=== PATIENT | female | born 1960 | race Two or more races ===

== ENCOUNTER → 2019-01-25 | Outpatient (CLI) | payer MEDICARE ==
[~2019-01-25] VITALS: Ht 167.6 cm; Wt 86.2 kg
== END | disposition home or self-care (01) ==
LOC: Rad HDHVI 08:41
PROVIDERS: ATTEND Internal Medicine Cardiovascular Disease
DX: R42 Dizziness and giddiness (principal); R55 Syncope and collapse; R06.02 Shortness of breath; I10 Essential (primary) hypertension; E78.00 Pure hypercholesterolemia, unspecified; E11.9 Type 2 diabetes mellitus without complications; Z79.899 Other long term (current) drug therapy; Z79.84 Long term (current) use of oral hypoglycemic drugs
CPT/HCPCS: 78452; 93017; 93306; 96374; A9500

== ENCOUNTER 2020-03-05 14:53 | Inpatient (IN) | payer MEDICARE, MEDICAID ==
[~2020-03-05] VITALS: Ht 162.6 cm; Wt 87.3 kg
[2020-03-05] MEDS ORDERED: methylPREDNISolone SOD SUCC 125 MG/2 ML VL IV ONE (15:15)
[2020-03-05] MEDS ORDERED: AZITHROMYCIN 500MG/ 250ML 250 ML IV ONE (15:15)
[2020-03-05] MEDS ORDERED: REMDESIVIR PER PHARMACY 0 ML IV SCH (15:30)
[2020-03-05 15:52] LABS: Basophils # (auto) 0 10 ^3/uL (0-0.2); Basophils % (auto) 0.2 % (0.0-2.0); Eosinophils # (auto) 0.1 10 ^3/uL (0-0.8); Eosinophils % (auto) 1.2 % (0.0-7.0); Hematocrit 34.4 % (36.0-46.0); Hemoglobin 11.7 g/dL (12.2-16.2); Lymphocytes # (auto) 1.3 10 ^3/uL (0.4-5.4); Lymphocytes % (auto) 16.7 % (10.0-50.0); Mean Corpuscular Hemoglobin 27.5 pg (28.0-32.0); Mean Corpuscular Hgb Conc. 34.1 g/dL (32.0-36.0); Mean Corpuscular Volume 80.5 fL (80.0-100.0); Monocytes # (auto) 0.8 10 ^3/uL (0-1.3); Monocytes % (auto) 9.9 % (0.0-12.0); Neutrophils # (auto) 5.8 10 ^3/uL (1.6-8.6); Nucleated Red Blood Cells % 0.1 %; Platelet Count (auto) 390 10^3/uL (140-450); Red Blood Cells 4.28 10^6/uL (4.0-5.20); Red Cell Distribution Width 16.1 % (11.8-14.3)
[2020-03-05 16:11] LABS: Chloride 101 mmol/L (98-107); Potassium 3.6 mmol/L (3.5-5.1); Sodium 133 mmol/L (136-145)
[2020-03-05 16:23] LABS: Alanine Aminotransferase 31 U/L (13-56); Albumin 3.3 g/dL (3.4-5.0); Alkaline Phosphatase 104 U/L (45-117); Anion Gap 5 (5-15); Aspartate Aminotransferase 31 U/L (15-37); BUN/Creatinine Ratio 11.4; Bilirubin, Total 0.4 mg/dL (0.2-1.0); Blood Urea Nitrogen 8 mg/dL (7-18); Calcium 8.4 mg/dL (8.5-10.1); Carbon Dioxide 27 mmol/L (21-32); GFR African American 109 mL/min; GFR Non-African American 90 mL/min; Glucose 160 mg/dL (74-106); Total Protein 7.4 g/dL (6.4-8.2)
[2020-03-05] MEDS ORDERED: MORPHINE SULF INJ 2 MG/ML SYRINGE 1ML IV PRN ×3 (16:30→16:45)
[2020-03-05] MEDS ORDERED: NITROGLYCERIN 0.4 MG SL TAB SL PRN ×2 (16:30→16:45)
[2020-03-05] MEDS ORDERED: FUROSEMIDE 20 MG/2 ML VIAL IV ONE (16:45)
[2020-03-05] MEDS ORDERED: DOCUSATE SOD 100 MG CAP PO PRN (16:45)
[2020-03-05] MEDS ORDERED: ONDANSETRON HCL 4 MG/2 ML VIAL IV PRN (16:45)
[2020-03-05] MEDS ORDERED: PIPERACILLIN-TAZOB 3.375GM 100 ML IV ONE (16:45)
[2020-03-05] MEDS ORDERED: ENOXAPARIN SOD 80 MG/0.8ML SYRINGE SC ONE (16:45)
[2020-03-05] MEDS ORDERED: ALUM & MAG HYDROX-SIMETH LIQ(MAALOX) 30 ML PO PRN (16:45)
[2020-03-05] MEDS ORDERED: VANCOMYCIN PER PHARMACY 0 MG IV SCH (16:45)
[2020-03-05] MEDS ORDERED: FENO160T8 PO (16:52)
[2020-03-05] MEDS ORDERED: SITA100T7 PO (16:52)
[2020-03-05] MEDS ORDERED: OMEP-260 PO (16:52)
[2020-03-05] MEDS ORDERED: LEVO125T7 PO (16:52)
[2020-03-05] MEDS ORDERED: METF-771 PO (16:52)
[2020-03-05] MEDS ORDERED: INSUINJ18 SC (16:52)
[2020-03-05] MEDS ORDERED: LOSA-39 PO (16:52)
[2020-03-05] MEDS ORDERED: HYDR-3682 PO (16:52)
[2020-03-05] MEDS ORDERED: FLUT50SP28 (16:52)
[2020-03-05] MEDS ORDERED: ATOR20TA50 PO (16:52)
[2020-03-05 17:24] LABS: Magnesium 1.9 mg/dL (1.6-2.6)
[2020-03-05] MEDS ORDERED: DEXTROSE (50%) 50ML SYRG IV PRN (19:00)
[2020-03-05] MEDS ORDERED: LOSARTAN POTASSIUM 50 MG TAB PO ONE (19:00)
[2020-03-05] MEDS ORDERED: hydrALAZINE HCL 20 MG/ML VL IV PRN (19:00)
[2020-03-05] MEDS: BUDESONIDE (INHALATION) 180 MCG IH IN SCH (19:17)
[2020-03-05 19:27] LABS: Cholesterol 229 mg/dL (< 200); HDL Cholesterol 36 mg/dL (40-59); LDL Cholesterol 145 mg/dL (< 100); Triglycerides 256 mg/dL (< 150)
[2020-03-05] MEDS: FAMOTIDINE (10MG/ML) 2ML VL IV SCH (21:44)
[2020-03-05] MEDS: ACETAMINOPHEN 500 MG TAB PO PRN (21:45)
[2020-03-05] MEDS: ENOXAPARIN SOD 100 MG/1 ML SYRINGE SC SCH (21:47)
[2020-03-05] MEDS: ATORVASTATIN 20 MG TAB PO SCH (21:47)
[2020-03-05] MEDS ORDERED: InsuLIN REG 1unit/0.01ml Soln (100units/ml) SC SCH (22:00)
[2020-03-05] MEDS: ACCU-CHEK COMFORT CURVE STRIP VI SCH (22:20)
[2020-03-06] MEDS: PIPERACILLIN-TAZOB 3.375GM 100 ML IV SCH ×4 (00:01→18:00)
[2020-03-06] MEDS: VANCOMYCIN 1GM/250ML 250 ML IV SCH ×2 (00:44→10:00)
[2020-03-06 06:04] LABS: Basophils # (auto) 0 10 ^3/uL (0-0.2); Basophils % (auto) 0.2 % (0.0-2.0); Eosinophils # (auto) 0 10 ^3/uL (0-0.8); Hemoglobin 11.8 g/dL (12.2-16.2); Lymphocytes # (auto) 1.2 10 ^3/uL (0.4-5.4); Monocytes # (auto) 0.5 10 ^3/uL (0-1.3); Monocytes % (auto) 7.7 % (0.0-12.0); Nucleated Red Blood Cells % 0.1 %; Red Cell Distribution Width 16.3 % (11.8-14.3)
[2020-03-06 06:07] LABS: Hematocrit 34.6 % (36.0-46.0); Lymphocytes % (auto) 17.2 % (10.0-50.0); Mean Corpuscular Hemoglobin 27.3 pg (28.0-32.0); Mean Corpuscular Hgb Conc. 34.1 g/dL (32.0-36.0); Mean Corpuscular Volume 80.2 fL (80.0-100.0); Neutrophils % (auto) 74.9 % (37.0-80.0); Platelet Count (auto) 430 10^3/uL (140-450); Red Blood Cells 4.31 10^6/uL (4.0-5.20); White Blood Cell 6.7 10^3/uL (4.4-10.8)
[2020-03-06 06:24] LABS: Calcium 9.3 mg/dL (8.5-10.1); Potassium 3.9 mmol/L (3.5-5.1)
[2020-03-06 06:27] LABS: BUN/Creatinine Ratio 15.3; Bilirubin, Total 0.3 mg/dL (0.2-1.0); Total Protein 7.4 g/dL (6.4-8.2)
[2020-03-06] MEDS: FUROSEMIDE 20 MG/2 ML VIAL IV SCH ×2 (06:36→18:00)
[2020-03-06] MEDS: LEVOTHYROXINE SODIUM 50 MCG TAB PO SCH (07:00)
[2020-03-06] MEDS: InsuLIN REG 1unit/0.01ml Soln (100units/ml) SC SCH ×4 (07:00→18:00)
[2020-03-06] MEDS: ACCU-CHEK COMFORT CURVE STRIP VI SCH ×3 (07:00→18:00)
[2020-03-06] MEDS: ZINC SULFATE 220mg CAP or TAB PO SCH (10:00)
[2020-03-06] MEDS: CHOLECALCIFEROL (VITD3) 2,000 UNIT CAP PO SCH (10:00)
[2020-03-06] MEDS: FAMOTIDINE (10MG/ML) 2ML VL IV SCH ×2 (10:00→22:00)
[2020-03-06] MEDS: BUDESONIDE (INHALATION) 180 MCG IH IN SCH ×2 (10:00→22:00)
[2020-03-06] MEDS: DexAMETHasone SOD PHOS 10MG/1ML VIAL INJ IV SCH (10:00)
[2020-03-06] MEDS: ASPirin 81 mg TAB PO SCH (10:00)
[2020-03-06] MEDS: ASCORBIC ACID 1,000 MG TAB PO SCH (10:00)
[2020-03-06] MEDS: LOSARTAN POTASSIUM 50 MG TAB PO SCH (10:00)
[2020-03-06] MEDS: ENOXAPARIN SOD 100 MG/1 ML SYRINGE SC SCH (10:00)
--- NOTE | 2020-03-06 10:00 | NUR ---
Respiratory note: 10:00AM [facility] NEB TX HELD DUE TO PENDING COVID-19 RESULTS
--- NOTE | 2020-03-06 12:18 | NUR ---
Respiratory note: RN AWARE TO HAVE RT PAGED IF NEEDED.
[2020-03-06] MEDS ORDERED: ENOXAPARIN SOD 40 MG/0.4 ML SYRINGE SC ONE (13:00)
[2020-03-06] MEDS ORDERED: DEXTROSE (50%) 50ML SYRG IV PRN (13:00)
[2020-03-06] MEDS ORDERED: DOXYCYCLINE 100 MG TAB/CAP PO ONE (13:00)
[2020-03-06] MEDS ORDERED: REMDESIVIR 200 MG in NS 210ml LOADING DOSE ADULT IV ONE (17:00)
[2020-03-06] MEDS: INSULIN LANTUS (GLARGINE) 1 /0.01ml (100units/ml) SC SCH (22:00)
[2020-03-06] MEDS: ATORVASTATIN 20 MG TAB PO SCH (22:00)
[2020-03-06] MEDS: DOXYCYCLINE 100 MG TAB/CAP PO SCH (22:00)
--- NOTE | 2020-03-06 23:45 | NUR ---
Telemetry admit from ONI VARGHESE admitted to Telemetry unit after SBAR received. Patient oriented to MONICA YEAGER RN primary RN, unit, room, bed, and unit policies regarding patient care and visiting hours. Patient now on continuous telemetry monitoring, tele box # 52 and telemetry reading on arrival to unit is Sinus Rhythm at 82BPM. Patient placed on bedside oxygen, weighed by bedscale and encouraged to call if they need something. All questions and concerns addressed, patient verbalized understanding.
[2020-03-07] VITALS (7 sets, daily range): BP systolic 132–147; BP diastolic 70–82
[2020-03-07] MEDS: InsuLIN REG 1unit/0.01ml Soln (100units/ml) SC SCH ×8 (01:26→22:59)
[2020-03-07] MEDS: PIPERACILLIN-TAZOB 3.375GM 100 ML IV SCH ×4 (01:27→17:15)
[2020-03-07] MEDS: LORazepam 0.5 MG TAB PO PRN ×2 (01:27→21:14)
[2020-03-07] MEDS ORDERED: INFLUENZA QUAD 2020-2021 0.5 ML SYRG IM ONE (03:15)
[2020-03-07] MEDS: ACCU-CHEK COMFORT CURVE STRIP VI SCH ×4 (06:00→17:14)
[2020-03-07 07:05] LABS: Potassium 3.9 mmol/L (3.5-5.1)
[2020-03-07] MEDS: FUROSEMIDE 20 MG/2 ML VIAL IV SCH ×2 (07:07→17:16)
[2020-03-07] MEDS: LEVOTHYROXINE SODIUM 50 MCG TAB PO SCH (07:08)
[2020-03-07 07:15] LABS: Albumin 2.9 g/dL (3.4-5.0); BUN/Creatinine Ratio 23.8; Bilirubin, Total 0.2 mg/dL (0.2-1.0); Calcium 9.3 mg/dL (8.5-10.1)
--- NOTE | 2020-03-07 07:30 | NUR ---
Opening Shift Note Assumed care of patient, awake and alert. No S/S of distress, reports weakness. Sob with activity, denies pain. Instructed on POC and to call for assist PRN, will continue to monitor for changes Q1hr and PRN.
[2020-03-07] MEDS: BUDESONIDE (INHALATION) 180 MCG IH IN SCH ×2 (07:54→20:23)
[2020-03-07] MEDS: ALBUTEROL SULF HFA 90MCG INH 200DOSE IN PRN ×2 (07:54→20:24)
[2020-03-07 09:19] LABS: Urine Bacteria NONE SEEN /hpf (None Seen); Urine Blood Negative /uL (Negative); Urine Hyaline Cast FEW /lpf (0 - 2); Urine Specific Gravity 1.007 (1.001-1.035); Urine WBC 2 /hpf (0 - 5)
[2020-03-07] MEDS ORDERED: REMDESIVIR PER PHARMACY 0 ML IV SCH (09:45)
[2020-03-07] MEDS: DexAMETHasone SOD PHOS 10MG/1ML VIAL INJ IV SCH (09:47)
[2020-03-07] MEDS: ASPirin 81 mg TAB PO SCH (09:47)
[2020-03-07] MEDS: FAMOTIDINE (10MG/ML) 2ML VL IV SCH ×2 (09:47→21:14)
[2020-03-07] MEDS: ZINC SULFATE 220mg CAP or TAB PO SCH (09:48)
[2020-03-07 09:49] LABS: Amphetamine Screen, Urine NEGATIVE (NEGATIVE); Barbiturate Scree,Urine NEGATIVE (NEGATIVE); Benzodiazephine Screen, Urine NEGATIVE (NEGATIVE); Cannabinoid Screen, Urine NEGATIVE (NEGATIVE); Cocaine Screen, Urine NEGATIVE (NEGATIVE); Opiate Scree,Urine NEGATIVE (NEGATIVE); Phencyclidine Screen, Urine NEGATIVE (NEGATIVE)
[2020-03-07] MEDS: ASCORBIC ACID 1,000 MG TAB PO SCH (09:49)
[2020-03-07] MEDS: LOSARTAN POTASSIUM 50 MG TAB PO SCH (09:49)
[2020-03-07] MEDS: DOXYCYCLINE 100 MG TAB/CAP PO SCH ×2 (09:49→21:14)
[2020-03-07] MEDS: CHOLECALCIFEROL (VITD3) 2,000 UNIT CAP PO SCH (09:49)
[2020-03-07] MEDS: ENOXAPARIN SOD 40 MG/0.4 ML SYRINGE SC SCH (09:50)
[2020-03-07] MEDS: INSULIN LANTUS (GLARGINE) 1 /0.01ml (100units/ml) SC SCH ×2 (10:00→22:59)
[2020-03-07] MEDS: ACETAMINOPHEN 500 MG TAB PO PRN (10:50)
--- NOTE | 2020-03-07 15:00 | NUR ---
Remdesivir started, patient reports feeling well, BP 141/80, P 72.
--- NOTE | 2020-03-07 15:17 | NUR ---
15 min vs for remdesivir BP 134/73, p 70, reports feeling fine.
[2020-03-07] MEDS: REMDESIVIR 100 MG in SODIUM CHL 0.9% 250 ML IV SCH (16:15)
--- NOTE | 2020-03-07 19:27 | NUR ---
Opening Shift Note Assumed care of patient, awake and alert. No S/S of distress/SOB or pain. Patient on 4L NC SPO2 95%. Instructed on POC and to call for assistance PRN, will continue to monitor for changes Q1hr and PRN. Safety precautions in place bed is in lowest position and locked, bed rails 2x.
[2020-03-07] MEDS: ATORVASTATIN 20 MG TAB PO SCH (21:14)
[2020-03-08 05:00] VITALS: BP 113/74
[2020-03-08] MEDS: ACCU-CHEK COMFORT CURVE STRIP VI SCH ×5 (06:00→23:24)
[2020-03-08] MEDS: InsuLIN REG 1unit/0.01ml Soln (100units/ml) SC SCH ×7 (06:47→23:10)
[2020-03-08] MEDS: PIPERACILLIN-TAZOB 3.375GM 100 ML IV SCH ×5 (07:05→23:24)
[2020-03-08] MEDS: FUROSEMIDE 20 MG/2 ML VIAL IV SCH ×2 (07:05→17:37)
[2020-03-08] MEDS: LEVOTHYROXINE SODIUM 50 MCG TAB PO SCH (07:06)
--- NOTE | 2020-03-08 07:33 | NUR ---
Opening Shift Note Assumed care of patient, awake and alert. No S/S of distress, SOB with activity, remains on 4l NC, denies pain. Instructed on POC and to call for assist PRN, will continue to monitor for changes Q1hr and PRN.
[2020-03-08 07:49] LABS: Potassium 3.6 mmol/L (3.5-5.1)
[2020-03-08 07:54] LABS: BUN/Creatinine Ratio 25.6
[2020-03-08 07:55] LABS: Albumin 3.3 g/dL (3.4-5.0); Bilirubin, Total 0.3 mg/dL (0.2-1.0); Calcium 9.7 mg/dL (8.5-10.1); Total Protein 8.1 g/dL (6.4-8.2)
[2020-03-08 09:00] VITALS: BP 131/67
[2020-03-08] MEDS: FAMOTIDINE (10MG/ML) 2ML VL IV SCH ×2 (09:07→21:14)
[2020-03-08] MEDS: DexAMETHasone SOD PHOS 10MG/1ML VIAL INJ IV SCH (09:07)
[2020-03-08] MEDS: ZINC SULFATE 220mg CAP or TAB PO SCH (09:07)
[2020-03-08] MEDS: DOXYCYCLINE 100 MG TAB/CAP PO SCH ×2 (09:07→21:14)
[2020-03-08] MEDS: ASPirin 81 mg TAB PO SCH (09:07)
[2020-03-08] MEDS: ENOXAPARIN SOD 40 MG/0.4 ML SYRINGE SC SCH (09:08)
[2020-03-08] MEDS: ASCORBIC ACID 1,000 MG TAB PO SCH (09:08)
[2020-03-08] MEDS: CHOLECALCIFEROL (VITD3) 2,000 UNIT CAP PO SCH (09:08)
[2020-03-08] MEDS: BUDESONIDE (INHALATION) 180 MCG IH IN SCH ×2 (10:00→21:17)
[2020-03-08] MEDS: LOSARTAN POTASSIUM 50 MG TAB PO SCH (10:11)
[2020-03-08] MEDS: INSULIN LANTUS (GLARGINE) 1 /0.01ml (100units/ml) SC SCH ×2 (10:12→23:10)
[2020-03-08] MEDS: ALBUTEROL SULF HFA 90MCG INH 200DOSE IN PRN ×2 (10:38→23:01)
--- NOTE | 2020-03-08 11:54 | NUR ---
Assessment Patient is a 60 year old female, who is alert and oriented. Patient cognitive abilities are intact. Patient states that prior to being admitted to [facility], she could do all ADL's and ambulate. Patient stated that she is a diabetic. Patient stated that she is retire and receives social security benefits as income. Patient that she lives alone, patient stated that her son (Kary) is her support system. Patient stated that she will return home post discharge. Patient stated that her son will provide transportation post discharge. Patient is receptive to receive Advance Directive forms. Discharge planning: Patient will return home post discharge, patient will follow up care with her PCP post discharge. Patient has all diabetic supplies to resume home care post discharge. SW will provide Advance Directive forms prior to discharge. There are no other discharge needs to address at the moment. Addendum: 03/08/20 at 1201 by GHADA LUCERO SS Amended: Links added.
[2020-03-08 13:00] VITALS: BP 131/76
--- NOTE | 2020-03-08 15:20 | NUR ---
Remdesivir started BP 131/67 P 75, 15 mins in 133/70, P 74, will continue to monitor.
[2020-03-08] MEDS: REMDESIVIR 100 MG in SODIUM CHL 0.9% 250 ML IV SCH (15:45)
[2020-03-08 17:00] VITALS: BP 154/75
[2020-03-08] MEDS: LORazepam 0.5 MG TAB PO PRN (21:13)
[2020-03-08] MEDS: ATORVASTATIN 20 MG TAB PO SCH (21:14)
[2020-03-08 22:00] VITALS: BP 148/80
[2020-03-09 05:00] VITALS: BP 116/87
[2020-03-09] MEDS: BUDESONIDE (INHALATION) 180 MCG IH IN SCH ×2 (06:00→22:00)
[2020-03-09] MEDS: ACCU-CHEK COMFORT CURVE STRIP VI SCH ×3 (06:07→18:01)
[2020-03-09 06:10] VITALS: BP 116/87
[2020-03-09] MEDS: InsuLIN REG 1unit/0.01ml Soln (100units/ml) SC SCH ×3 (06:13→18:01)
[2020-03-09] MEDS: FUROSEMIDE 20 MG/2 ML VIAL IV SCH ×2 (06:53→18:05)
[2020-03-09] MEDS: PIPERACILLIN-TAZOB 3.375GM 100 ML IV SCH ×3 (06:53→18:06)
[2020-03-09] MEDS: LEVOTHYROXINE SODIUM 50 MCG TAB PO SCH (06:54)
--- NOTE | 2020-03-09 07:30 | NUR ---
Opening Shift Note Assumed patient care from NOC RN. Patient currently Aox4, no signs of distress at this time. Respirations even and unlabored at 5L nasal cannula. Safety precautions are in place, will continue to monitor q1hr and PRN.
[2020-03-09 09:07] VITALS: BP 137/72
[2020-03-09] MEDS: FAMOTIDINE (10MG/ML) 2ML VL IV SCH ×2 (10:00→21:49)
[2020-03-09] MEDS: ZINC SULFATE 220mg CAP or TAB PO SCH (10:01)
[2020-03-09] MEDS: ASPirin 81 mg TAB PO SCH (10:01)
[2020-03-09] MEDS: LOSARTAN POTASSIUM 50 MG TAB PO SCH (10:01)
[2020-03-09] MEDS: DOXYCYCLINE 100 MG TAB/CAP PO SCH ×2 (10:01→21:50)
[2020-03-09] MEDS: ASCORBIC ACID 1,000 MG TAB PO SCH (10:02)
[2020-03-09] MEDS: CHOLECALCIFEROL (VITD3) 2,000 UNIT CAP PO SCH (10:02)
--- NOTE | 2020-03-09 10:03 | NUR ---
Nutrition Assessment Est energy needs [id number] kcal (18-20kcal/kg BW 88.1kg) est protein needs 55-71g (1-1.3g/kg IBW 55kg) Will monitor and reassess prn. Addendum: 03/09/20 at [address] Amended: Links added.
[2020-03-09] MEDS: ENOXAPARIN SOD 40 MG/0.4 ML SYRINGE SC SCH (10:16)
[2020-03-09] MEDS: DexAMETHasone SOD PHOS 10MG/1ML VIAL INJ IV SCH (10:16)
[2020-03-09] MEDS: INSULIN LANTUS (GLARGINE) 1 /0.01ml (100units/ml) SC SCH ×2 (10:22→22:00)
[2020-03-09 12:19] LABS: Mean Corpuscular Hemoglobin 26.9 pg (28.0-32.0); Mean Corpuscular Volume 80.6 fL (80.0-100.0)
[2020-03-09 12:21] LABS: Hematocrit 35.1 % (36.0-46.0); Hemoglobin 11.7 g/dL (12.2-16.2); Mean Corpuscular Hgb Conc. 33.3 g/dL (32.0-36.0); Platelet Count (auto) 617 10^3/uL (140-450); Red Blood Cells 4.36 10^6/uL (4.0-5.20); Red Cell Distribution Width 16.2 % (11.8-14.3); White Blood Cell 15.2 10^3/uL (4.4-10.8)
[2020-03-09 12:33] LABS: Basophils % (manual) 0 (0.0-2.0); Blast Cells 0; Metamyelocytes % 0; Promyelocytes % 0; Reactive Lymphocytes 0
[2020-03-09 12:53] LABS: Potassium 3.2 mmol/L (3.5-5.1)
[2020-03-09 13:00] VITALS: BP 133/70
[2020-03-09 13:05] LABS: Albumin 3.1 g/dL (3.4-5.0); BUN/Creatinine Ratio 32.9; Bilirubin, Total 0.3 mg/dL (0.2-1.0); Calcium 8.9 mg/dL (8.5-10.1); Total Protein 7.4 g/dL (6.4-8.2)
[2020-03-09] MEDS: ACETAMINOPHEN 500 MG TAB PO PRN (13:16)
[2020-03-09 14:52] LABS: Band Neutrophils % (manual) 1; Eosinophils % (manual) 1 (0-7); Lymphocytes % (manual) 17 (10.0-50.0); Monocytes % (manual) 7 (0-12); Myelocytes % 1
[2020-03-09] MEDS: REMDESIVIR 100 MG in SODIUM CHL 0.9% 250 ML IV SCH (15:18)
--- NOTE | 2020-03-09 16:25 | NUR ---
Remdesivir Medication administered per orders. Starting BP 147/83 HR 73 15 minute reassessment: 143/82 HR 75.
[2020-03-09 16:36] VITALS: BP 137/76
[2020-03-09] MEDS: LORazepam 0.5 MG TAB PO PRN (18:10)
--- NOTE | 2020-03-09 19:02 | NUR ---
Closing Shift Note Endorsed care to NOC RNRishabh.
[2020-03-09 21:00] VITALS: BP 116/65
[2020-03-09] MEDS: ATORVASTATIN 20 MG TAB PO SCH (21:49)
[2020-03-09] MEDS: ALBUTEROL SULF HFA 90MCG INH 200DOSE IN PRN (22:49)
[2020-03-10] MEDS: LORazepam 0.5 MG TAB PO PRN ×2 (00:15→20:28)
[2020-03-10 05:00] VITALS: BP 122/72
[2020-03-10] MEDS: ACCU-CHEK COMFORT CURVE STRIP VI SCH ×4 (06:00→17:22)
[2020-03-10] MEDS: FUROSEMIDE 20 MG/2 ML VIAL IV SCH ×2 (06:00→17:28)
[2020-03-10] MEDS: PIPERACILLIN-TAZOB 3.375GM 100 ML IV SCH ×4 (06:00→17:28)
[2020-03-10] MEDS: InsuLIN REG 1unit/0.01ml Soln (100units/ml) SC SCH ×4 (06:00→17:29)
[2020-03-10] MEDS: LEVOTHYROXINE SODIUM 50 MCG TAB PO SCH (06:51)
--- NOTE | 2020-03-10 07:30 | NUR ---
Opening Shift Note Assumed patient care from NOC Rishabh RODRIGUZE.
[2020-03-10] MEDS: ALBUTEROL SULF HFA 90MCG INH 200DOSE IN PRN (07:35)
[2020-03-10] MEDS: BUDESONIDE (INHALATION) 180 MCG IH IN SCH ×2 (07:35→20:05)
[2020-03-10 07:46] LABS: Calcium 9.2 mg/dL (8.5-10.1); Potassium 3.7 mmol/L (3.5-5.1)
[2020-03-10 07:53] LABS: Albumin 3.5 g/dL (3.4-5.0); BUN/Creatinine Ratio 32.9; Bilirubin, Total 0.2 mg/dL (0.2-1.0); Total Protein 7.8 g/dL (6.4-8.2)
[2020-03-10 09:00] VITALS: BP 139/71
[2020-03-10] MEDS: ENOXAPARIN SOD 40 MG/0.4 ML SYRINGE SC SCH (10:00)
[2020-03-10] MEDS: ASPirin 81 mg TAB PO SCH (10:34)
[2020-03-10] MEDS: DexAMETHasone SOD PHOS 10MG/1ML VIAL INJ IV SCH (10:34)
[2020-03-10] MEDS: LOSARTAN POTASSIUM 50 MG TAB PO SCH (10:35)
[2020-03-10] MEDS: DOXYCYCLINE 100 MG TAB/CAP PO SCH ×2 (10:35→22:00)
[2020-03-10] MEDS: ZINC SULFATE 220mg CAP or TAB PO SCH (10:35)
[2020-03-10] MEDS: ASCORBIC ACID 1,000 MG TAB PO SCH (10:35)
[2020-03-10] MEDS: CHOLECALCIFEROL (VITD3) 2,000 UNIT CAP PO SCH (10:35)
[2020-03-10] MEDS: FAMOTIDINE (10MG/ML) 2ML VL IV SCH ×2 (10:44→22:00)
[2020-03-10] MEDS: ACETAMINOPHEN 500 MG TAB PO PRN (10:45)
[2020-03-10] MEDS: INSULIN LANTUS (GLARGINE) 1 /0.01ml (100units/ml) SC SCH ×2 (10:49→22:00)
--- NOTE | 2020-03-10 11:56 | NUR ---
at Bedside Dr. Conner at bedside discussing plan of care with patient.
--- NOTE | 2020-03-10 12:40 | NUR ---
IS Patient provided with IS, educated on use and benefits. Patient verbalized understanding and returned demonstration to 1500 marker x3. Patient encouraged to continue with use. Will continue to monitor q1hr and PRN.
[2020-03-10 13:00] VITALS: BP 125/76
--- NOTE | 2020-03-10 15:20 | NUR ---
Remdesivir Medication administered per orders. Starting BP 132/75 HR 83 15 minute reassessment: 119/69 HR 75 Addendum: 03/10/20 at 1720 by DENNISE ELAM RN RN End: 140/74 HR 74
[2020-03-10] MEDS: REMDESIVIR 100 MG in SODIUM CHL 0.9% 250 ML IV SCH (15:23)
[2020-03-10 17:00] VITALS: BP 142/80
--- NOTE | 2020-03-10 19:20 | NUR ---
Opening Shift Note Assumed care of patient, awake and alert. No S/S of distress/SOB or pain. Instructed on POC and to call for assist PRN, will continue to monitor for changes Q1hr and PRN.
[2020-03-10] MEDS: ATORVASTATIN 20 MG TAB PO SCH (22:00)
[2020-03-11 00:57] VITALS: BP 135/73
[2020-03-11] MEDS: ALBUTEROL SULF HFA 90MCG INH 200DOSE IN PRN ×2 (03:11→22:17)
[2020-03-11] MEDS: ACCU-CHEK COMFORT CURVE STRIP VI SCH ×4 (05:53→17:17)
[2020-03-11] MEDS: PIPERACILLIN-TAZOB 3.375GM 100 ML IV SCH ×3 (05:53→12:47)
[2020-03-11] MEDS: FUROSEMIDE 20 MG/2 ML VIAL IV SCH ×2 (06:00→18:07)
[2020-03-11] MEDS: InsuLIN REG 1unit/0.01ml Soln (100units/ml) SC SCH ×4 (06:00→18:22)
[2020-03-11] MEDS: LEVOTHYROXINE SODIUM 50 MCG TAB PO SCH (06:46)
--- NOTE | 2020-03-11 07:30 | NUR ---
Opening Shift Note Assumed patient care from JAMAL RODRIGUEZ. Patient currently sitting up in bed, feet dangling. Patient is AOX4 on 3L nasal cannula at this time. Patient denies shortness of breath at this time but complains of fatigue and head/back ache 05/29 at this time. Will continue to monitor q1hr and PRN. Addendum: 03/11/20 at 1145 by DENNISE ELAM RN RN Safety precautions are in place.
[2020-03-11 09:00] VITALS: BP 130/66
[2020-03-11] MEDS: DexAMETHasone SOD PHOS 10MG/1ML VIAL INJ IV SCH (09:36)
[2020-03-11] MEDS: FAMOTIDINE (10MG/ML) 2ML VL IV SCH ×2 (09:36→20:54)
[2020-03-11] MEDS: LOSARTAN POTASSIUM 50 MG TAB PO SCH (09:37)
[2020-03-11] MEDS: DOXYCYCLINE 100 MG TAB/CAP PO SCH (09:37)
[2020-03-11] MEDS: ZINC SULFATE 220mg CAP or TAB PO SCH (09:37)
[2020-03-11] MEDS: ASPirin 81 mg TAB PO SCH (09:37)
[2020-03-11] MEDS: ASCORBIC ACID 1,000 MG TAB PO SCH (09:38)
[2020-03-11] MEDS: ENOXAPARIN SOD 40 MG/0.4 ML SYRINGE SC SCH (09:38)
[2020-03-11] MEDS: CHOLECALCIFEROL (VITD3) 2,000 UNIT CAP PO SCH (09:38)
[2020-03-11] MEDS: BUDESONIDE (INHALATION) 180 MCG IH IN SCH ×2 (10:00→22:00)
[2020-03-11] MEDS: INSULIN LANTUS (GLARGINE) 1 /0.01ml (100units/ml) SC SCH ×2 (10:26→20:54)
[2020-03-11 13:00] VITALS: BP 147/78
[2020-03-11] MEDS: HYDROcodone-ACET 5/325MG TAB PO PRN ×2 (13:00→18:21)
[2020-03-11 17:00] VITALS: BP 129/70
--- NOTE | 2020-03-11 18:05 | NUR ---
Room Air Patient current SpO2 95% on room air. Patient has been on room air approximately 1hour, denies shortness of breath at this time. RR 18. No signs of distress, will continue to monitor q1hr and PRN.
--- NOTE | 2020-03-11 19:19 | NUR ---
Closing Shift Note Endorsed care to NOC RN.
[2020-03-11] MEDS: ATORVASTATIN 20 MG TAB PO SCH (20:54)
[2020-03-11] MEDS: LORazepam 0.5 MG TAB PO PRN (20:56)
[2020-03-11 22:00] VITALS: BP 146/75
[2020-03-11] MEDS ORDERED: DOXYCYCLINE 100 MG TAB/CAP PO SCH (22:00)
[2020-03-12 05:00] VITALS: BP 100/66
[2020-03-12] MEDS: InsuLIN REG 1unit/0.01ml Soln (100units/ml) SC SCH ×3 (06:00→12:21)
[2020-03-12] MEDS: FUROSEMIDE 20 MG/2 ML VIAL IV SCH (06:00)
[2020-03-12] MEDS: ACCU-CHEK COMFORT CURVE STRIP VI SCH ×3 (06:00→12:21)
[2020-03-12] MEDS: LEVOTHYROXINE SODIUM 50 MCG TAB PO SCH (06:30)
--- NOTE | 2020-03-12 07:30 | NUR ---
Opening Shift Note Upon entering room patient awake and alert. No signs of distress or shortness of breath noted. Respirations even and unlabored. Instructed patient on the use of the call light PRN, call light is within reach. Safety measures are in place including bed locked and in lowest position with two side rails up. Will continue to monitor for any changes.
[2020-03-12 08:00] VITALS: BP 160/81
[2020-03-12 08:03] LABS: Hematocrit 40.6 % (36.0-46.0)
[2020-03-12 08:05] LABS: Hemoglobin 13.6 g/dL (12.2-16.2); Mean Corpuscular Hemoglobin 26.9 pg (28.0-32.0); Mean Corpuscular Hgb Conc. 33.5 g/dL (32.0-36.0); Mean Corpuscular Volume 80.3 fL (80.0-100.0); Red Blood Cells 5.05 10^6/uL (4.0-5.20); Red Cell Distribution Width 16.2 % (11.8-14.3); White Blood Cell 16.6 10^3/uL (4.4-10.8)
[2020-03-12] MEDS: HYDROcodone-ACET 5/325MG TAB PO PRN (08:05)
[2020-03-12 08:10] LABS: Potassium 3.7 mmol/L (3.5-5.1)
[2020-03-12 08:17] LABS: BUN/Creatinine Ratio 38.7; Calcium 9.7 mg/dL (8.5-10.1)
[2020-03-12 08:39] LABS: Platelet Count (auto) 768 10^3/uL (140-450)
[2020-03-12 08:45] LABS: Basophils % (manual) 0 (0.0-2.0); Blast Cells 0; Promyelocytes % 0; Reactive Lymphocytes 0
[2020-03-12] MEDS: FAMOTIDINE (10MG/ML) 2ML VL IV SCH (10:00)
[2020-03-12] MEDS: INSULIN LANTUS (GLARGINE) 1 /0.01ml (100units/ml) SC SCH (10:00)
[2020-03-12] MEDS: ENOXAPARIN SOD 40 MG/0.4 ML SYRINGE SC SCH (10:00)
[2020-03-12] MEDS: ASCORBIC ACID 1,000 MG TAB PO SCH (10:37)
[2020-03-12] MEDS: DexAMETHasone SOD PHOS 10MG/1ML VIAL INJ IV SCH (10:37)
[2020-03-12] MEDS: ASPirin 81 mg TAB PO SCH (10:38)
[2020-03-12] MEDS: ZINC SULFATE 220mg CAP or TAB PO SCH (10:38)
[2020-03-12] MEDS: CHOLECALCIFEROL (VITD3) 2,000 UNIT CAP PO SCH (10:38)
[2020-03-12] MEDS: LOSARTAN POTASSIUM 50 MG TAB PO SCH (10:50)
--- NOTE | 2020-03-12 11:44 | NUR ---
DOCTOR CORDON AT BEDSIDE.
[2020-03-12] MEDS ORDERED: ASCO10003 PO (11:46)
[2020-03-12] MEDS ORDERED: CHOL1CAP47 PO (11:46)
[2020-03-12] MEDS ORDERED: ALBU1AER4 IN (11:46)
[2020-03-12 11:54] LABS: Band Neutrophils % (manual) 1; Eosinophils % (manual) 1 (0-7); Lymphocytes % (manual) 18 (10.0-50.0); Metamyelocytes % 1; Monocytes % (manual) 11 (0-12); Myelocytes % 3
[2020-03-12] MEDS ORDERED: PNEUMOCOCCAL VACC POLYS 25 MCG/0.5 ML VIAL IM ONE ×2 (12:00→14:30)
[2020-03-12 13:00] VITALS: BP 147/72
[2020-03-12] MEDS ORDERED: INFLUENZA QUAD 2020-2021 0.5 ML SYRG IM ONE (14:15)
--- NOTE | 2020-03-12 17:14 | NUR ---
Discharge instructions given as ordered. Encourage to follow up with PMD as instructed. All questions and concerns addressed. Patient verbalized understanding. Medication reconciliation form completed and copy given to patient. ALL needed vaccines given. IV removed with catheter intact, pressure dressing applied. Telemetry unit returned to ICU. Patient taken to vehicle via wheelchair with all personal belongings, accompanied by staff member. No distress noted at time of departure.
== END 2020-03-12 17:14 | disposition home or self-care (01) | DRG 177 ==
LOC: ER 14:53 → OVERFLOW 16:28 → TELE-WESTW 03-06 23:59
PROVIDERS: ADMIT Hospitalist; ATTEND Internal Medicine Pulmonary Disease
PROC: XW033E5 Introduction of Remdesivir Anti-infective into Peripheral Vein, Percutaneous Approach, New Technology Group 5 (ICD-10-PCS; principal; 2020-03-05)
DX: U07.1 COVID-19 (principal); J96.01 Acute respiratory failure with hypoxia; J12.89 Other viral pneumonia; E87.1 Hypo-osmolality and hyponatremia; E66.9 Obesity, unspecified; I10 Essential (primary) hypertension; K21.9 Gastro-esophageal reflux disease without esophagitis; Z86.73 Personal history of transient ischemic attack (TIA), and cerebral infarction without residual deficits; E03.9 Hypothyroidism, unspecified; E78.5 Hyperlipidemia, unspecified; E11.65 Type 2 diabetes mellitus with hyperglycemia; Z79.4 Long term (current) use of insulin; Z23 Encounter for immunization; Z68.33 Body mass index [BMI] 33.0-33.9, adult
CPT/HCPCS: 36415; 71045; 80048; 80053; 80061; 80307; 81001; 82728; 82962; 83036; 83605; 83615; 83735; 84443; 84484; 85007; 85025; 85027; 85379; 86141; 87040; 87086; 87426; 93005; 94640; G0378; J1100; J1815; J2543; J3490

== ENCOUNTER → 2020-08-14 | Outpatient (CLI) | payer MEDICARE, MEDICAID ==
[~2020-08-14] MED LIST: ALBU1AER4 IN; ASCO10003 PO; ATOR20TA50 PO; CHOL1CAP47 PO; FENO160T8 PO; FLUT50SP28; HYDR-3682 PO; INSUINJ18 SC; LEVO125T7 PO; LOSA-39 PO; METF-771 PO; OMEP-260 PO; SITA100T7 PO
== END | disposition home or self-care (01) ==
LOC: Rad HDHVI 08:24
PROVIDERS: ATTEND Internal Medicine Cardiovascular Disease
DX: I51.7 Cardiomegaly (principal); E78.5 Hyperlipidemia, unspecified
CPT/HCPCS: 93306